=== PATIENT | male | born 1955 | race African-American/Black ===

== ENCOUNTER 2019-06-27 12:18 | Inpatient (IN) | payer MEDICARE, MEDICAID ==
[~2019-06-27] VITALS: Ht 175.3 cm; Wt 54.0 kg
[~2019-06-27 12:18] MED LIST: ALBU18HF2 IH; AMLO10TA80 PO; ASPI-1497 PO; DIVA500T51 PO; GEMF600T5 PO; PARO30TA62 PO; QUET25TA MT
[2019-06-27] MEDS ORDERED: SODIUM CHLORIDE 0.9% 1,000 ML IV ONE (12:51)
[2019-06-27 13:13] LABS: HEMOGLOBIN. 13.9 g/dL (14.0-18.0); MEAN CORPUSCULAR HEMOGLOBIN 35.5 pg (28.0-32.0); MEAN CORPUSCULAR VOLUME 101.9 fL (80.0-94.0); MEAN PLATELET VOLUME 10.6 fl (7.4-10.4); PLATELET 152 x1000/uL (130-400); RED BLOOD CELL COUNT 3.93 mill/uL (4.7-6.1); RED CELL DISTRIBUTION WIDTH 15.3 % (11.6-14.6)
[2019-06-27 13:19] LABS: CHLORIDE 119 mEq/L (98-107); INR 1.4
[2019-06-27 13:23] LABS: ETHANOL BLOOD < 10 mg/dL
[2019-06-27] MEDS ORDERED: VANCOMYCIN 1 G PREMIX 200 ML IV ONE (14:00)
[2019-06-27] MEDS ORDERED: PIPERACILLIN/TAZ 3.375G PREMIX 50 ML IV ONE (14:00)
[2019-06-27] MEDS ORDERED: SODIUM CHLORIDE 0.9% 1000ML BAG (SEPSIS BOLUS) IV ONE (14:00)
[2019-06-27 14:27] LABS: PLATELET ESTIMATE NORMAL
[2019-06-27 14:34] LABS: CLARITY URINE CLOUDY (CLEAR); COLOR URINE DARK YELLOW (YELLOW); KETONES URINE TRACE (NEGATIVE); LEUKOCYTE ESTERASE URINE 1+ (NEGATIVE); NITRITE URINE NEGATIVE (NEGATIVE); OCCULT BLOOD URINE 3+ (NEGATIVE); PH URINE 5.5 (4.5-8.0); PROTEIN URINE 2+ (NEGATIVE); SPECIFIC GRAVITY URINE 1.025 (1.005-1.030)
[2019-06-27 15:05] LABS: *BARBITURATES SCREEN URINE NEGATIVE (NEGATIVE); *BENZODIAZEPINES SCREEN URINE NEGATIVE (NEGATIVE)
[2019-06-27 15:06] LABS: *AMPHETAMINES SCREEN URINE NEGATIVE (NEGATIVE); *COCAINE SCREEN URINE NEGATIVE (NEGATIVE); CANNABINOID URINE SCREEN NEGATIVE (NEGATIVE); METHADONE URINE SCREEN NEGATIVE (NEGATIVE); OPIATES URINE SCREEN PRESUMTIVE POSITIVE (NEGATIVE); PHENCYCLIDINE URINE SCREEN NEGATIVE (NEGATIVE)
[2019-06-27] MEDS ORDERED: ONDANSETRON HCL 4MG/2ML INJ IV PRN (22:00)
[2019-06-27] MEDS ORDERED: ACETAMINOPHEN 650MG SUPP PR PRN (22:00)
[2019-06-27 22:40] VITALS: BP 114/69
[2019-06-27 23:00] VITALS: BP 114/69
[2019-06-28] MEDS ORDERED: LEVOFLOXACIN 500MG PREMIX 100 ML IV SCH (02:00)
[2019-06-28] MEDS ORDERED: DEXT 5%/0.45% NACL KCL 10MEQ/L 1,000 ML IV SCH (02:00)
[2019-06-28] MEDS ORDERED: LEVO125T8 PO (02:15)
[2019-06-28] MEDS ORDERED: QUET200T29 PO (02:15)
[2019-06-28] MEDS ORDERED: QUET200T29 MT (02:15)
[2019-06-28] MEDS ORDERED: DIPH50CA38 PO (02:15)
[2019-06-28] MEDS ORDERED: SIMV-43 PO (02:15)
[2019-06-28] MEDS: LEVOFLOXACIN 250MG PREMIX 50 ML IV SCH (02:23)
[2019-06-28 04:00] VITALS: BP 101/66
[2019-06-28 07:32] LABS: CHLORIDE 126 mEq/L (98-107)
[2019-06-28 08:00] VITALS: BP 106/66
[2019-06-28 08:16] LABS: BASOPHILS % 0.2 % (0.0-2.0); HEMATOCRIT. 32.9 % (42.0-52.0); HEMOGLOBIN. 11.5 g/dL (14.0-18.0); LYMPHOCYTES % 9.1 % (20.0-50.0); MEAN CORPUSCULAR HEMOGLOBIN 36.4 pg (28.0-32.0); MEAN CORPUSCULAR VOLUME 103.8 fL (80.0-94.0); MEAN PLATELET VOLUME 10.5 fl (7.4-10.4); MONOCYTES % 1.9 % (2.0-8.0); NEUTROPHILS % 88.8 % (40.0-76.0); PLATELET 140 x1000/uL (130-400); RED BLOOD CELL COUNT 3.17 mill/uL (4.7-6.1); RED CELL DISTRIBUTION WIDTH 15.2 % (11.6-14.6)
[2019-06-28] MEDS: ENOXAPARIN 40MG/0.4ML SYR SUBCUT SCH (09:00)
[2019-06-28] MEDS ORDERED: VANCOMYCIN 1 G PREMIX 200 ML IV SCH (09:00)
[2019-06-28] MEDS: VANCOMYCIN 1250MG in DEXTROSE 5% WATER 250ML IV SCH ×2 (09:30→20:45)
[2019-06-28] MEDS: DEXTROSE 5% WATER 1,000 ML IV SCH (12:46)
[2019-06-28 16:00] VITALS: BP 98/64
[2019-06-28 20:00] VITALS: BP 99/60
[2019-06-29] VITALS: BP 99/66
[2019-06-29] MEDS: DEXTROSE 5% WATER 1,000 ML IV SCH ×2 (00:31→14:42)
[2019-06-29] MEDS: LEVOFLOXACIN 250MG PREMIX 50 ML IV SCH (01:57)
[2019-06-29 04:00] VITALS: BP 111/70
[2019-06-29 08:00] VITALS: BP 105/63
[2019-06-29 08:06] LABS: HEMATOCRIT. 30.6 % (42.0-52.0); HEMOGLOBIN. 10.8 g/dL (14.0-18.0); MEAN CORPUSCULAR HEMOGLOBIN 36.1 pg (28.0-32.0); MEAN CORPUSCULAR VOLUME 101.9 fL (80.0-94.0); MEAN PLATELET VOLUME 10.1 fl (7.4-10.4); PLATELET 149 x1000/uL (130-400)
[2019-06-29] MEDS: ENOXAPARIN 40MG/0.4ML SYR SUBCUT SCH (09:17)
[2019-06-29] MEDS: VANCOMYCIN 1250MG in DEXTROSE 5% WATER 250ML IV SCH ×2 (09:17→20:57)
[2019-06-29 12:00] VITALS: BP 141/89
[2019-06-29 14:21] LABS: PLATELET ESTIMATE NORMAL
[2019-06-29 16:00] VITALS: BP 114/69
[2019-06-29 20:00] VITALS: BP 100/57
[2019-06-29] MEDS: MULTIVITAMINS,THER W-MINERALS TABLET PO SCH (20:53)
[2019-06-30] VITALS: BP 120/88
[2019-06-30] MEDS: LEVOFLOXACIN 250MG PREMIX 50 ML IV SCH (03:38)
[2019-06-30 05:00] VITALS: BP 105/61
[2019-06-30 07:45] LABS: CHLORIDE 108 mEq/L (98-107)
[2019-06-30 08:00] VITALS: BP 99/62
[2019-06-30] MEDS: MULTIVITAMINS,THER W-MINERALS TABLET PO SCH (08:46)
[2019-06-30] MEDS: ENOXAPARIN 40MG/0.4ML SYR SUBCUT SCH (08:47)
[2019-06-30] MEDS: DEXTROSE 5% WATER 1,000 ML IV SCH ×2 (08:53→16:43)
[2019-06-30] MEDS ORDERED: POTASSIUM CHLORIDE 20MEQ TABLET SR PO NR ×2 (09:45→11:00)
[2019-06-30 12:00] VITALS: BP 124/71
[2019-06-30] MEDS ORDERED: POTASSIUM CHLORIDE 20MEQ/PACKET PO NR (14:45)
[2019-06-30 16:00] VITALS: BP 125/72
[2019-06-30 20:00] VITALS: BP 121/66
[2019-06-30] MEDS: VANCOMYCIN 1250MG in DEXTROSE 5% WATER 250ML IV SCH (21:50)
[2019-07-01] VITALS: BP 101/68
[2019-07-01] MEDS: LEVOFLOXACIN 250MG PREMIX 50 ML IV SCH (02:18)
[2019-07-01 04:00] VITALS: BP 118/68
[2019-07-01] MEDS: DEXTROSE 5% WATER 1,000 ML IV SCH ×2 (05:40→18:08)
[2019-07-01 08:00] VITALS: BP 137/75
[2019-07-01] MEDS: MULTIVITAMINS,THER W-MINERALS TABLET PO SCH (09:04)
[2019-07-01] MEDS: ENOXAPARIN 40MG/0.4ML SYR SUBCUT SCH (09:04)
[2019-07-01] MEDS ORDERED: MAGNESIUM 2 G PREMIX 50 ML IV SCH (11:00)
[2019-07-01 12:00] VITALS: BP 99/62
[2019-07-01] MEDS: VANCOMYCIN 1250MG in DEXTROSE 5% WATER 250ML IV SCH (15:26)
[2019-07-01 16:00] VITALS: BP 99/56
[2019-07-01 20:00] VITALS: BP 118/69
[2019-07-02] VITALS (7 sets, daily range): BP systolic 98–123; BP diastolic 58–93
[2019-07-02] MEDS: LEVOFLOXACIN 250MG PREMIX 50 ML IV SCH (03:15)
[2019-07-02] MEDS: MULTIVITAMINS,THER W-MINERALS TABLET PO SCH (08:38)
[2019-07-02] MEDS: VANCOMYCIN 1250MG in DEXTROSE 5% WATER 250ML IV SCH (08:38)
[2019-07-02] MEDS: DEXTROSE 5% WATER 1,000 ML IV SCH (08:38)
[2019-07-02] MEDS: ENOXAPARIN 40MG/0.4ML SYR SUBCUT SCH (08:39)
[2019-07-02 13:48] LABS: CHLORIDE 105 mEq/L (98-107)
[2019-07-03] VITALS: BP 106/59
[2019-07-03] MEDS: LEVOFLOXACIN 250MG PREMIX 50 ML IV SCH (01:00)
[2019-07-03] MEDS: DEXTROSE 5% WATER 1,000 ML IV SCH ×3 (01:00→22:32)
[2019-07-03] MEDS: VANCOMYCIN 1250MG in DEXTROSE 5% WATER 250ML IV SCH ×2 (02:19→20:04)
[2019-07-03 02:22] LABS: BASOPHILS % 0.3 % (0.0-2.0); EOSINOPHILS % 1.2 % (0.0-5.0); HEMATOCRIT. 29.3 % (42.0-52.0); HEMOGLOBIN. 10.2 g/dL (14.0-18.0); LYMPHOCYTES % 24.3 % (20.0-50.0); MEAN CORPUSCULAR HEMOGLOBIN 35.2 pg (28.0-32.0); MEAN CORPUSCULAR VOLUME 101.5 fL (80.0-94.0); MEAN PLATELET VOLUME 8.3 fl (7.4-10.4); MONOCYTES % 13.4 % (2.0-8.0); NEUTROPHILS % 60.8 % (40.0-76.0); PLATELET 348 x1000/uL (130-400); RED BLOOD CELL COUNT 2.89 mill/uL (4.7-6.1)
[2019-07-03 02:25] LABS: CHLORIDE 107 mEq/L (98-107)
[2019-07-03 02:32] LABS: VANCOMYCIN TROUGH 18.2 ug/mL (5.0-10.0)
[2019-07-03 04:00] VITALS: BP 131/74
[2019-07-03 08:00] VITALS: BP 104/59
[2019-07-03] MEDS: ENOXAPARIN 40MG/0.4ML SYR SUBCUT SCH (09:50)
[2019-07-03] MEDS: MULTIVITAMINS,THER W-MINERALS TABLET PO SCH (09:50)
[2019-07-03 12:00] VITALS: BP 104/60
[2019-07-03 16:00] VITALS: BP 117/67
[2019-07-03 20:00] VITALS: BP 125/67
[2019-07-03 21:30] LABS: HEPATITIS B SURFACE ANTIGEN NEGATIVE
[2019-07-04] VITALS: BP 130/73
[2019-07-04] MEDS: LEVOFLOXACIN 250MG PREMIX 50 ML IV SCH (01:00)
[2019-07-04 04:00] VITALS: BP 142/76
[2019-07-04 08:00] VITALS: BP 110/61
[2019-07-04] MEDS: ENOXAPARIN 40MG/0.4ML SYR SUBCUT SCH (09:03)
[2019-07-04] MEDS: MULTIVITAMINS,THER W-MINERALS TABLET PO SCH (09:03)
[2019-07-04 12:00] VITALS: BP 135/65
[2019-07-04 16:40] VITALS: BP 105/64
[2019-07-04] MEDS ORDERED: ATORVASTATIN CALCIUM 20MG TABLET PO SCH (21:00)
[2019-07-04] MEDS ORDERED: LINEZOLID 600MG TABLET PO SCH (21:00)
== END 2019-07-04 22:47 | DRG 871 ==
LOC: ER 12:44 → 5WST 18:07 → ENRESERV 22:00 → CANBEDREQ 23:04
PROVIDERS: ADMIT Hospitalist; ATTEND Hospitalist
DX: A41.9 Sepsis, unspecified organism (principal); G93.41 Metabolic encephalopathy; J18.9 Pneumonia, unspecified organism; E87.0 Hyperosmolality and hypernatremia; E87.2 Acidosis; N17.9 Acute kidney failure, unspecified; D68.9 Coagulation defect, unspecified; J44.0 Chronic obstructive pulmonary disease with (acute) lower respiratory infection; F31.9 Bipolar disorder, unspecified; I10 Essential (primary) hypertension; D64.9 Anemia, unspecified; E27.9 Disorder of adrenal gland, unspecified; E78.00 Pure hypercholesterolemia, unspecified; E78.5 Hyperlipidemia, unspecified; E83.42 Hypomagnesemia; E87.6 Hypokalemia; E05.90 Thyrotoxicosis, unspecified without thyrotoxic crisis or storm; F17.210 Nicotine dependence, cigarettes, uncomplicated; R74.0 Nonspecific elevation of levels of transaminase and lactic acid dehydrogenase [LDH]; Z60.2 Problems related to living alone; B95.3 Streptococcus pneumoniae as the cause of diseases classified elsewhere; B95.2 Enterococcus as the cause of diseases classified elsewhere; B96.89 Other specified bacterial agents as the cause of diseases classified elsewhere; Z86.73 Personal history of transient ischemic attack (TIA), and cerebral infarction without residual deficits; Z79.899 Other long term (current) drug therapy
CPT/HCPCS: 36415; 71045; 71250; 80048; 80051; 80053; 80076; 80202; 80305; 80320; 81003; 82962; 83605; 83735; 84484; 85025; 86803; 87077; 87186; 87340; 92610; 93005; 93306; 93970; 97110; 97116; 97162; 97166; 99291; J1650; J1956; J2543; J3370; J3475; J7030; J7060; J7070; G0480

== ENCOUNTER → 2021-05-04 | Outpatient (CLI) | payer MEDICARE, MEDICAID ==
[~2021-05-04] MED LIST changes: +DIPH50CA38 PO; -GEMF600T5 PO; +GEMF600T90 PO; +LEVO125T8 PO; +QUET200T30 MT; +QUET200T30 PO; +SIMV-43 PO
== END | disposition home or self-care (01) ==
LOC: CT 12:30
PROVIDERS: ATTEND Internal Medicine Nephrology
DX: J43.2 Centrilobular emphysema (principal); I25.10 Atherosclerotic heart disease of native coronary artery without angina pectoris; E27.8 Other specified disorders of adrenal gland; R91.8 Other nonspecific abnormal finding of lung field
CPT/HCPCS: 71250